=== PATIENT | male | born 1985 | race Asian ===

== ENCOUNTER 2017-09-01 21:51 | Emergency (ER) | payer OTHER ==
[~2017-09-01] VITALS: Ht 175.3 cm; Wt 80.7 kg
[2017-09-02 00:33] LABS: PLATELET COUNT 229 K/uL (142-355)
[2017-09-02 00:38] LABS: POTASSIUM 4.1 mmol/L (3.6-5.2); SODIUM 135 mmol/L (136-145)
[2017-09-02 03:16] VITALS: BP 141/70; TEMP 98.2
== END 2017-09-02 03:41 | disposition home or self-care (01) ==
LOC: ED 21:51
PROVIDERS: Specialist
DX: E05.90 Thyrotoxicosis, unspecified without thyrotoxic crisis or storm (principal); R00.0 Tachycardia, unspecified
CPT/HCPCS: 36415; 80053; 81000; 82550; 82553; 84443; 84484; 85027; 93005; 96374; 99284